=== PATIENT | female | born 1980 | race Caucasian/White ===

== ENCOUNTER 2016-11-23 05:48 | Inpatient (IN) | payer OTHER ==
[~2016-11-23] VITALS: Ht 170.2 cm; Wt 91.0 kg
[2016-11-23] MEDS ORDERED: LACTATED RINGERS 1,000 ML IV SCH ×2 (05:55→06:00)
[2016-11-23] MEDS ORDERED: OXYTOCIN 30U/ 0.9% NaCL 500ML 500 ML IV SCH (05:55)
[2016-11-23] MEDS ORDERED: METOCLOPRAMIDE 5 MG/ML, 2ML IV ONE (06:00)
[2016-11-23] MEDS ORDERED: SODIUM CITRATE/CITRIC ACID 30 ML UDC PO ONE (06:00)
[2016-11-23] MEDS ORDERED: LACTATED RINGERS 1,000 ML IVBOLUS ONE (06:00)
[2016-11-23 06:25] LABS: HEMATOCRIT 35.4 % (34.6-47.8); HEMOGLOBIN 11.9 g/dL (11.7-16.4); WHITE BLOOD COUNT 11.7 x10^3/uL (3.4-10)
[2016-11-23] MEDS ORDERED: PLEASE ENTER HEIGHT AND WEIGHT MC SCH (06:30)
[2016-11-23] MEDS ORDERED: PLEASE ENTER ALLERGIES MC SCH ×2 (06:30)
[2016-11-23] MEDS ORDERED: NEWBORN KIT ONE (06:56)
[2016-11-23] MEDS ORDERED: SODIUM CITRATE/CITRIC ACID 30 ML UDC ONE (07:05)
[2016-11-23] MEDS ORDERED: METOCLOPRAMIDE 5 MG/ML, 2ML ONE (07:05)
[2016-11-23] MEDS: LACTATED RINGERS 1,000 ML IV SCH ×5 (07:29→23:29)
[2016-11-23] MEDS: OXYTOCIN 30U/ 0.9% NaCL 500ML 500 ML IV SCH ×2 (07:29→17:29)
[2016-11-23] MEDS ORDERED: ACETAMINOPHEN 325 MG TABLET PO PRN ×2 (07:30)
[2016-11-23] MEDS ORDERED: IBUPROFEN 600 MG TABLET PO PRN (07:30)
[2016-11-23] MEDS ORDERED: DIPH,PERTUSS(ACELL),TET VAC/PF NC IM-VACC PRN (07:30)
[2016-11-23] MEDS ORDERED: EPHEDRINE 50 MG/ML, 1ML IVPush PRN (07:30)
[2016-11-23] MEDS ORDERED: morphine SULFATE 10 MG/ML, 1ML IV PRN (07:30)
[2016-11-23] MEDS ORDERED: CALCIUM CARBONATE 500 MG TAB.CHEW PO PRN (07:30)
[2016-11-23] MEDS ORDERED: SIMETHICONE 80 MG CHEW TAB PO PRN (07:30)
[2016-11-23] MEDS ORDERED: MEASLES,MUMPS&RUBELLA VACC/PF 0.5 ML SQ-VACC PRN (07:30)
[2016-11-23] MEDS ORDERED: MIDAZOLAM 1 MG/ML, 2ML IV PRN (07:30)
[2016-11-23] MEDS ORDERED: morphine SULFATE 10 MG/ML, 1ML IVPush PRN ×2 (07:30)
[2016-11-23] MEDS ORDERED: MEPERIDINE/PF 25MG/0.5ML IVPush PRN (07:30)
[2016-11-23] MEDS ORDERED: ONDANSETRON 2MG/ML, 2ML IVPush PRN (07:30)
[2016-11-23] MEDS ORDERED: ONDANSETRON 2MG/ML, 2ML IV PRN (07:30)
[2016-11-23] MEDS ORDERED: FENTANYL PF 100 MCG/2ML IV PRN (07:30)
[2016-11-23] MEDS ORDERED: HYDROcodone/APAP 7.5-325MG/15ML UDC PO PRN (07:30)
[2016-11-23] MEDS ORDERED: MISOPROSTOL 200 MCG TABLET PR PRN (07:30)
[2016-11-23] MEDS ORDERED: OXYcodone/APAP 5/325MG TABLET PO PRN ×2 (07:30)
[2016-11-23] MEDS ORDERED: MEPERIDINE/PF 50 MG/ML ONE (08:03)
[2016-11-23] MEDS: KETOROLAC 30 MG/1 ML IV SCH ×3 (08:20→20:17)
[2016-11-23] MEDS ORDERED: OXYTOCIN 30U/ 0.9% NaCL 500ML 500 ML ONE (09:16)
[2016-11-23] MEDS ORDERED: morphine SULFATE 10 MG/ML, 1ML ONE (09:57)
[2016-11-23] MEDS: PRENATAL VIT/IRON/FA 1 EACH TABLET PO SCH (10:40)
[2016-11-23 11:25] VITALS: BP 142/80
[2016-11-23] MEDS: HYDROcodone/APAP 5/325 TABLET PO PRN ×2 (14:39→20:17)
[2016-11-23 15:45] VITALS: BP 111/65
[2016-11-23 16:17] LABS: HEMOGLOBIN 11.5 g/dL (11.7-16.4); WHITE BLOOD COUNT 14.4 x10^3/uL (3.4-10)
[2016-11-23 19:05] VITALS: BP 111/71
[2016-11-23] MEDS: DOCUSATE 100 MG CAPSULE PO PRN (20:18)
[2016-11-24] MEDS: HYDROcodone/APAP 5/325 TABLET PO PRN ×6 (00:25→21:39)
[2016-11-24 00:26] VITALS: BP 113/67
[2016-11-24] MEDS: KETOROLAC 30 MG/1 ML IV SCH ×5 (02:14→21:39)
[2016-11-24] MEDS: OXYTOCIN 30U/ 0.9% NaCL 500ML 500 ML IV SCH (03:37)
[2016-11-24] MEDS: LACTATED RINGERS 1,000 ML IV SCH (03:37)
[2016-11-24] MEDS: DOCUSATE 100 MG CAPSULE PO PRN ×2 (09:09→21:39)
[2016-11-24] MEDS: PRENATAL VIT/IRON/FA 1 EACH TABLET PO SCH (09:10)
[2016-11-24 09:25] VITALS: BP 123/72
[2016-11-24 19:10] VITALS: BP 111/70
[2016-11-25] MEDS: KETOROLAC 30 MG/1 ML IV SCH (03:05)
[2016-11-25 08:10] VITALS: BP 114/66
[2016-11-25] MEDS: HYDROcodone/APAP 5/325 TABLET PO PRN ×2 (08:20→13:24)
[2016-11-25] MEDS: PRENATAL VIT/IRON/FA 1 EACH TABLET PO SCH (08:20)
[2016-11-25] MEDS: DOCUSATE 100 MG CAPSULE PO PRN (08:20)
[2016-11-25] MEDS ORDERED: HYDR-3240 PO (12:02)
[2016-11-25] MEDS ORDERED: IBUP-1222 PO (12:03)
[2016-11-25] MEDS ORDERED: DOCU-131 PO (12:04)
== END 2016-11-25 14:45 | disposition home or self-care (01) | DRG 766 ==
LOC: LDIP 05:48 → 2NW 10:34
PROVIDERS: ADMIT Obstetrics & Gynecology; ATTEND Obstetrics & Gynecology
PROC: 10D00Z1 Extraction of Products of Conception, Low, Open Approach (ICD-10-PCS; principal; 2016-11-23)
DX: O34.211 Maternal care for low transverse scar from previous cesarean delivery (principal); O69.81X0 Labor and delivery complicated by cord around neck, without compression, not applicable or unspecified; Z37.0 Single live birth; Z3A.40 40 weeks gestation of pregnancy
CPT/HCPCS: 36415; 85025; 86850; 86900; J1885; J2175; J2270; J2590; J2765; J7120